=== PATIENT | female | born 1975 | race Caucasian/White ===

== ENCOUNTER 2016-04-17 06:17 | Day surgery (SDC) | payer OTHER ==
[~2016-04-17] VITALS: Ht 152.4 cm; Wt 119.3 kg
[~2016-04-17 06:17] MED LIST: AUG500 PO; DOXY-4 PO
[2016-04-17] MEDS ORDERED: LevALBUTEROL HCL 1.25 MG/0.5 ML *CONC.* VIAL.NEB (XOPENEX CONC.) INH ONE ×2 (06:45→06:56)
[2016-04-17] MEDS ORDERED: CEFAZOLIN SOD 1 GM/ ISO 50 ML PREMIX IV ONE (07:00)
[2016-04-17] MEDS ORDERED: LR 1,000 ML IV SCH (08:16)
[2016-04-17] MEDS ORDERED: HYDROmorphone 1 MG INJ. 1 MG/ML AMPUL IVP PRN (08:30)
[2016-04-17] MEDS ORDERED: OXYCODONE/ACETAMINOPHEN 5-325 TABLET PO PRN ×2 (08:30)
[2016-04-17] MEDS ORDERED: HYDROmorphone 2 MG/ML VIAL IVP PRN ×2 (08:30)
[2016-04-17] MEDS ORDERED: HYDROcodone/ACETAMIN 5-325 MG TAB (NORCO/ VICODIN) PO PRN (08:30)
[2016-04-17] MEDS ORDERED: ONDANSETRON HCL 4 MG/2 ML VIAL IVP PRN (08:30)
[2016-04-17] MEDS ORDERED: MEPERIDINE HCL/PF 25 MG/ML DISP.SYRIN IVP PRN (08:30)
[2016-04-17] MEDS ORDERED: HYDROmorphone 2 MG/ML VIAL ONE (09:11)
[2016-04-17 09:50] VITALS: BP_SYST 103
[2016-04-17] MEDS ORDERED: ONDANSETRON HCL 4 MG/2 ML VIAL ONE ×2 (11:09→14:00)
[2016-04-17] MEDS ORDERED: DEXAMETHASONE SOD PHOSPHATE 4 MG/ML VIAL ONE (14:00)
[2016-04-17] MEDS ORDERED: LR 1,000 ML IV.SOLN IV ONE (14:00)
[2016-04-17] MEDS ORDERED: MIDAZOLAM HCL 5 MG/5 ML VIAL ONE (14:00)
[2016-04-17] MEDS ORDERED: NS IRRIG SOLN 1000 ML IR ONE (14:00)
[2016-04-17] MEDS ORDERED: KETOROLAC TROMETHAMINE 30 MG VIAL ONE (14:00)
[2016-04-17] MEDS ORDERED: NS 1000 ML BAG IV ONE (14:00)
[2016-04-17] MEDS ORDERED: ROCURONIUM BROMIDE 10 MG/ML (ZEMURON) ONE (14:00)
[2016-04-17] MEDS ORDERED: SEVOFLURANE 15 MIN GAS INH ONE (14:00)
[2016-04-17] MEDS ORDERED: PROPOFOL 200MG/ 20ML VIAL (DIPRIVAN) IV ONE (14:00)
[2016-04-17] MEDS ORDERED: fentaNYL CITRATE 250 MCG/5 ML AMP ONE (14:00)
== END 2016-04-17 12:45 | disposition home or self-care (01) ==
LOC: SDS 06:17 → SMU 06:18 → SDS 12:45
PROVIDERS: ATTEND Specialist
DX: N85.6 Intrauterine synechiae (principal); N92.0 Excessive and frequent menstruation with regular cycle; E66.01 Morbid (severe) obesity due to excess calories; E03.9 Hypothyroidism, unspecified; N99.4 Postprocedural pelvic peritoneal adhesions
CPT/HCPCS: 58300; 58559; 88305; J0690; J1100; J1170; J1885; J2250; J2405; J2704; J3010; J7030; J7120

== ENCOUNTER 2020-02-03 20:44 | Emergency (ER) | payer OTHER, SELFPAY ==
[~2020-02-03] VITALS: Ht 152.4 cm; Wt 127.0 kg
[~2020-02-03 20:44] MED LIST changes: -DOXY-4 PO; +DOXY100C PO
[2020-02-03 21:15] VITALS: BP_SYST 160
[2020-02-03 22:54] LABS: BASOPHILS % (AUTO) 0.4 % (0.0-2.0); EOSINOPHILS % (AUTO) 0.5 % (0.0-4.0); HEMOGLOBIN 12.7 g/dL (12.0-16.0); LYMPHOCYTES # (AUTO) 1.5 K/uL (1.0-5.5); MEAN CORPUSCULAR HEMOGLOBIN 29 pg (27-31); MEAN CORPUSCULAR HGB CONC 34 % (32-36); MEAN CORPUSCULAR VOLUME 87 fL (79.0-98.0); MONOCYTES # (AUTO) 0.6 K/uL (0.0-1.0); MONOCYTES % (AUTO) 11.7 % (1.7-9.3); NEUTROPHILS # (AUTO) 2.8 K/uL (1.8-7.7); NEUTROPHILS % (AUTO) 56.4 % (40.0-70.0); PLATELET COUNT (AUTO) 291 K/uL (130-430); RED BLOOD CELL COUNT(AUTO) 4.39 MIL/uL (4.2-6.2); RED CELL DISTRIBUTION WIDTH 13.6 % (9.0-15.0)
[2020-02-03 23:15] LABS: ANION GAP 11 (5-15); CALCIUM 8.7 mg/dL (8.4-11.0); CHLORIDE 104 mmol/L (98-107); CREATININE 0.69 mg/dL (0.55-1.30); GLUCOSE 98 mg/dL (70-99); POTASSIUM 3.4 mmol/L (3.5-5.1); SODIUM SERUM 141 mmol/L (136-145); UREA NITROGEN, BLOOD 11 mg/dL (8-21)
[2020-02-03 23:26] LABS: ALANINE AMINOTRANSFERASE 41 U/L (12-78); ALBUMIN 3.9 g/dL (3.4-4.8); ASPARTATE AMINOTRANSFERASE 37 U/L (10-37); GFR AFRICAN AMERICAN 120 mL/min (>90); TOTAL BILIRUBIN 0.3 mg/dL (0.0-1.0)
[2020-02-04 00:19] LABS: CREATINE KINASE MB 3.8 ng/mL (0-3.6)
[2020-02-04 02:30] LABS: CKMB RELATIVE INDEX 0.8 (0.0-2.9)
[2020-02-04 03:07] VITALS: BP_SYST 160
== END 2020-02-04 03:08 | disposition home or self-care (01) ==
LOC: SED 20:44
DX: U07.1 COVID-19 (principal); R06.02 Shortness of breath; R74.8 Abnormal levels of other serum enzymes; Z79.899 Other long term (current) drug therapy
CPT/HCPCS: 36415; 71045; 80053; 82550-TC; 82553-TC; 83880; 84484; 85025; 85379; 93005; 99285

== ENCOUNTER 2020-09-18 15:58 | Outpatient (CLI) | payer OTHER ==
[2020-09-18 17:09] LABS: BILIRUBIN,URINE NEGATIVE (NEGATIVE); COLOR,URINE YELLOW (YELLOW); GLUCOSE,URINE NEGATIVE (NEGATIVE); KETONES,URINE TRACE (NEGATIVE); LEUKOCYTE ESTERASE ,URINE TRACE (NEGATIVE); NITRITE, URINE NEGATIVE (NEGATIVE); PROTEIN URINE 1+ (NEGATIVE); UROBILINOGEN,URINE 0.2 (0.2-1.0)
[2020-09-18 17:34] LABS: PROTHROMBIN TIME 10.4 SECS (9.5-12.5)
[2020-09-18 17:36] LABS: BASOPHILS % (AUTO) 0.5 % (0.0-2.0); EOSINOPHILS # (AUTO) 0.1 K/uL (0.0-0.4); EOSINOPHILS % (AUTO) 0.7 % (0.0-4.0); HEMATOCRIT 35.6 % (36-48); HEMOGLOBIN 11.6 g/dL (12.0-16.0); LYMPHOCYTES % (AUTO) 26.4 % (20.5-51.5); MEAN CORPUSCULAR HEMOGLOBIN 28 pg (27-31); MEAN CORPUSCULAR HGB CONC 33 % (32-36); MEAN CORPUSCULAR VOLUME 87 fL (79.0-98.0); MONOCYTES # (AUTO) 0.6 K/uL (0.0-1.0); MONOCYTES % (AUTO) 7.4 % (1.7-9.3); NEUTROPHILS # (AUTO) 4.9 K/uL (1.8-7.7); PLATELET COUNT (AUTO) 322 K/uL (130-430); RED CELL DISTRIBUTION WIDTH 12.8 % (9.0-15.0); WHITE BLOOD COUNT (AUTO) 7.5 K/uL (4.8-10.8)
[2020-09-18 17:42] LABS: ALBUMIN 3.3 g/dL (3.4-4.8); CALCIUM 8.9 mg/dL (8.4-11.0); CREATININE 0.56 mg/dL (0.55-1.30); POTASSIUM 4.1 mmol/L (3.5-5.1); TOTAL BILIRUBIN 0.3 mg/dL (0.0-1.0)
[2020-09-18 17:54] LABS: BLOOD, URINE TRACE (NEGATIVE)
[2020-09-18 17:55] LABS: CLARITY/URINE SLIGHTLY HAZY (CLEAR)
[2020-09-18 18:23] LABS: BACTERIA,URINE FEW /HPF (None Seen); RBC,URINE 0-3 /HPF (0-3)
[2020-09-20 05:09] LABS: HEPATITIS C VIRUS AB <0.1 s/co ratio (0.0-0.9)
== END 2020-09-18 20:28 | disposition home or self-care (01) ==
LOC: SLB 15:58
PROVIDERS: ATTEND Internal Medicine
DX: Z01.818 Encounter for other preprocedural examination (principal)
CPT/HCPCS: 36415; 71046-TC; 80053; 81000; 84703; 85025; 85610-TC; 85730-TC; 86803; 87086

== ENCOUNTER 2021-09-02 17:58 | Emergency (ER) | payer OTHER ==
[~2021-09-02] VITALS: Ht 152.4 cm; Wt 90.7 kg
--- NOTE | 2021-09-02 18:00 | NUR ---
Pt brought by self, A&Ox4, pt presents to ER with R upper abdominal pain , pt sent by Dr Azul to r/o ectopic or cyst, pt denies bleeding, skin pink and warm, respirations even and unlabored, cap refill <3.
[2021-09-02 18:19] VITALS: BP_SYST 160
[2021-09-02 19:14] LABS: BILIRUBIN,URINE NEGATIVE (NEGATIVE); CLARITY/URINE CLEAR (CLEAR); COLOR,URINE YELLOW (YELLOW); GLUCOSE,URINE NEGATIVE (NEGATIVE); KETONES,URINE NEGATIVE (NEGATIVE); LEUKOCYTE ESTERASE ,URINE NEGATIVE (NEGATIVE); NITRITE, URINE NEGATIVE (NEGATIVE); PROTEIN URINE TRACE (NEGATIVE); UROBILINOGEN,URINE 0.2 (0.2-1.0)
[2021-09-02 19:17] LABS: BLOOD, URINE TRACE (NEGATIVE)
[2021-09-02 19:23] LABS: BACTERIA,URINE FEW /HPF (None Seen); RBC,URINE 0-3 /HPF (0-3); WBC,URINE 0-3 /HPF (0-3)
[2021-09-02 19:24] LABS: MUCUS,URINE None Seen /LPF (None Seen)
[2021-09-02 19:36] LABS: BASOPHILS % (AUTO) 0.6 % (0.0-2.0); EOSINOPHILS # (AUTO) 0.1 K/uL (0.0-0.4); EOSINOPHILS % (AUTO) 1.6 % (0.0-4.0); HEMATOCRIT 39.3 % (36-48); HEMOGLOBIN 13.3 g/dL (12.0-16.0); LYMPHOCYTES # (AUTO) 2.4 K/uL (1.0-5.5); LYMPHOCYTES % (AUTO) 28.7 % (20.5-51.5); MEAN CORPUSCULAR HEMOGLOBIN 30 pg (27-31); MEAN CORPUSCULAR HGB CONC 34 % (32-36); MEAN CORPUSCULAR VOLUME 89 fL (79.0-98.0); MONOCYTES # (AUTO) 0.7 K/uL (0.0-1.0); MONOCYTES % (AUTO) 7.8 % (1.7-9.3); NEUTROPHILS # (AUTO) 5.2 K/uL (1.8-7.7); NEUTROPHILS % (AUTO) 61.3 % (40.0-70.0); PLATELET COUNT (AUTO) 349 K/uL (130-430); RED BLOOD CELL COUNT(AUTO) 4.42 MIL/uL (4.2-6.2); RED CELL DISTRIBUTION WIDTH 13.8 % (9.0-15.0); WHITE BLOOD COUNT (AUTO) 8.5 K/uL (4.8-10.8)
[2021-09-02 19:41] LABS: CALCIUM 9.5 mg/dL (8.4-11.0); CREATININE 0.71 mg/dL (0.55-1.30)
--- NOTE | 2021-09-02 19:41 | NUR ---
Pt to US accompanied by staff.
[2021-09-02 19:52] LABS: ALBUMIN 3.7 g/dL (3.4-4.8); TOTAL BILIRUBIN 0.3 mg/dL (0.0-1.0)
--- NOTE | 2021-09-02 22:52 | NUR ---
Patient given written and verbal discharge instructions and verbalizes understanding. ER MD discussed with patient the results and treatment provided. Patient in stable condition. ID arm band removed. IV catheter removed intact and dressing applied, no active bleeding. Rx of n/a-left without recieving paperwork. given. Patient educated on pain management and to follow up with PMD. Pain Scale . Opportunity for questions provided and answered. Medication side effect fact sheet provided.
== END 2021-09-02 22:51 | disposition home or self-care (01) ==
LOC: SED 17:58
DX: R10.84 Generalized abdominal pain (principal); Z79.899 Other long term (current) drug therapy
CPT/HCPCS: 36415; 76856-TC; 80053; 81000; 81025; 83690; 84702; 85025; 99284

== ENCOUNTER 2022-11-27 13:38 | Emergency (ER) | payer OTHER ==
[~2022-11-27] VITALS: Ht 152.4 cm; Wt 81.6 kg
[2022-11-27 13:46] VITALS: BP_SYST 149; PULSE 93; RESP 20; TEMP 98.3; O2SAT 98
[2022-11-27 15:00] LABS: BILIRUBIN,URINE NEGATIVE (NEGATIVE); BLOOD, URINE NEGATIVE (NEGATIVE); CLARITY/URINE CLEAR (CLEAR); COLOR,URINE YELLOW (YELLOW); GLUCOSE,URINE NEGATIVE (NEGATIVE); KETONES,URINE NEGATIVE (NEGATIVE); LEUKOCYTE ESTERASE ,URINE NEGATIVE (NEGATIVE); NITRITE, URINE NEGATIVE (NEGATIVE); PROTEIN URINE NEGATIVE (NEGATIVE); UROBILINOGEN,URINE 0.2 (0.2-1.0)
[2022-11-27] MEDS ORDERED: KETOROLAC TROMETHAMINE 15 MG VIAL IVP ONE (15:00)
[2022-11-27 15:36] LABS: ALBUMIN 3.4 g/dL (3.4-4.8); CALCIUM 8.8 mg/dL (8.4-11.0); CREATININE 0.67 mg/dL (0.55-1.30); POTASSIUM 4.3 mmol/L (3.5-5.1); TOTAL BILIRUBIN 0.3 mg/dL (0.0-1.0); TOTAL PROTEIN, SERUM 6.9 g/dL (6.4-8.3)
[2022-11-27 16:03] LABS: BASOPHILS % (AUTO) 0.4 % (0.0-2.0); EOSINOPHILS # (AUTO) 0.1 K/uL (0.0-0.4); EOSINOPHILS % (AUTO) 1.1 % (0.0-4.0); HEMATOCRIT 38.8 % (36-48); HEMOGLOBIN 13.3 g/dL (12.0-16.0); LYMPHOCYTES # (AUTO) 2.3 K/uL (1.0-5.5); LYMPHOCYTES % (AUTO) 30.9 % (20.5-51.5); MEAN CORPUSCULAR HEMOGLOBIN 29 pg (27-31); MEAN CORPUSCULAR HGB CONC 34 % (32-36); MEAN CORPUSCULAR VOLUME 86 fL (79.0-98.0); MONOCYTES # (AUTO) 0.5 K/uL (0.0-1.0); MONOCYTES % (AUTO) 6.2 % (1.7-9.3); NEUTROPHILS # (AUTO) 4.6 K/uL (1.8-7.7); NEUTROPHILS % (AUTO) 61.4 % (40.0-70.0); PLATELET COUNT (AUTO) 327 K/uL (130-430); RED BLOOD CELL COUNT(AUTO) 4.53 MIL/uL (4.2-6.2); RED CELL DISTRIBUTION WIDTH 15.8 % (9.0-15.0); WHITE BLOOD COUNT (AUTO) 7.5 K/uL (4.8-10.8)
[2022-11-27] MEDS ORDERED: MORPHINE 4 MG INJ. 4 MG/ML VIAL IVP ONE (19:30)
[2022-11-27] MEDS ORDERED: ONDANSETRON HCL 4 MG/2 ML VIAL IVP ONE (19:30)
[2022-11-27] MEDS ORDERED: IBUP-1969 PO (20:22)
[2022-11-27 20:51] VITALS: BP_SYST 155; PULSE 89; RESP 19; TEMP 97.9; O2SAT 100
== END 2022-11-27 20:51 | disposition home or self-care (01) ==
LOC: SED 13:38
DX: R10.31 Right lower quadrant pain (principal); R10.2 Pelvic and perineal pain; Z79.899 Other long term (current) drug therapy
CPT/HCPCS: 99285; 74177; 96374; 76830; 96375; 80053; 83690; 85025; 36415; 76376; 81025; 81003; J1885; J2405; J2270